=== PATIENT | female | born 1995 | race Caucasian/White ===

== ENCOUNTER 2019-12-18 11:36 | Outpatient (CLI) | payer BC ==
[2019-12-18 12:00] LABS: Appearance,Urine Clear (Clear); Bilirubin,Urine Negative (Negative); Blood,Urine Negative (Negative); Color,Urine Yellow; Glucose,Urine (UA) Negative (Negative); Ketones,Urine Negative (Negative); Leukocyte Esterase,Urine Negative (Negative); Nitrite,Urine Negative (Negative); PH, Urine 7.5 (5.0-8.0); Protein,Urine Negative (Negative); Specific Gravity,Urine 1.008 (1.001-1.035); Urobilinogen,Urine <2.0 mg/dL (<2.0)
[2019-12-18 12:27] LABS: Basophils % (A) 0 %; Eosinophils # (A) 0.1 k/uL (0-0.7); Eosinophils % (A) 1 %; HCT 37.4 % (34.0-46.0); HGB 12.3 gm/dL (11.4-16.0); Lymphocytes # (A) 1.3 k/uL (1.0-4.8); Lymphocytes % (A) 14 %; MCH 29.2 pg (25.0-35.0); MCHC 32.9 g/dL (31.0-37.0); MCV 88.7 fL (80.0-100.0); Mean Platelet Volume 8.9; Monocytes # (A) 0.4 k/uL (0-1.0); Monocytes % (A) 4 %; Neutrophils # (A) 7.6 k/uL (1.3-7.7); Neutrophils % (A) 80 %; Platelet Count 192 k/uL (150-450); RBC 4.22 m/uL (3.80-5.40); RDW 12.5 % (11.5-15.5); WBC 9.5 k/uL (3.8-10.6)
[2019-12-18 12:37] LABS: ALT 20 U/L (4-34); AST 23 U/L (14-36); African American GFR (CKD) >90 (>60 ml/min/1.73 sqM); Blood Urea Nitrogen 6 mg/dL (7-17); LDH 408 U/L (313-618); Non-African American GFR(CKD) >90 (>60 ml/min/1.73 sqM); Uric Acid 4.9 mg/dL (3.7-7.4)
[2019-12-18 12:39] LABS: Protein/Creatinine Ratio,Urine 0.155
[2019-12-18 12:51] VITALS: BP 132/81; PULSE 105; RESP 15; TEMP 98.8
--- NOTE | 2019-12-19 06:46 | P.MSEPDOC ---
Presenting Problems - Arrival Data Date of Arrival on Unit: 12/18/19 Time of Arrival on Unit: 11:45 Mode of Transport: Ambulatory - Complaint OB-Reason for Admission/Chief Complaint: PIH Medical History - Information : 1 Para: 0 Term: 0 : 0 Abortions: Spontaneous or Elective: 0 Number of Living Children: 0 - Gestational Age Gestational Age by ROBBIN (wks/days): 33 Weeks and 1 Days Review of Systems - Review of Systems Constitutional: No problems Breast: No problems ENT: No problems Cardiovascular: No problems Respiratory: No problems Gastrointestinal: No problems Genitourinary: No problems Musculoskeletal: No problems Neurological: No problems Skin: No problems Vital Signs - Temperature Temperature: 98.8 F Temperature Source: Temporal Artery Scan - Pulse Pulse Oximetery Pulse Rate: 105 Pulse Assessment Method: Automatic Cuff - Respirations Respiratory Rate: 15 Oxygen Delivery Method: Room Air O2 Sat by Pulse Oximetry: 98 - Blood Pressure Right Arm Blood Pressure: 132/81 Blood Pressure Mean: 98 Blood Pressure Source: Automatic Cuff Medical Screen Scoring (Pre) - Cervical Exam Dilation: Exam Deferred Effacement: Exam Deferred Membranes: Intact - Uterine Contractions Frequency: N/A Duration: N/A Intensity: N/A - Maternal Vital Signs Maternal Temperature: N/A Maternal Blood Pressure: N/A Signs of Preeclampsia: N/A Maternal Respirations: N/A - Maternal Trauma Maternal Trauma: N/A - Assessment - Baby A Baseline FHR: 140 Heart Rate - NICHD Category: Category I (Normal) = 0 NST: Reactive Position: N/A Station: N/A - Total Score - Baby A Total Score - Baby A: 0 - Total Score - Baby B Total Score - Baby B: 0 - Total Score - Baby C Total Score - Baby C: 0 - Level of Risk - Baby A Level of Risk - Baby A: Low (0-5) - Level of Risk - Baby B Level of Risk - Baby B: Low (0-5) - Level of Risk - Baby C Level of Risk - Baby C: Low (0-5) Physician Notification (Pre) - Physician Notified Physician Notified Date: 12/18/19 Physician Notified Time: 12:30 New Order Received: Yes Disposition - Disposition OB Disposition: Discharge to home Discharge Date: 12/18/19 Discharge Time: 12:51 I agree with the RN Medical Screening Exam: Yes Risk & Benefit of care provided described in d/c instruction: Yes Diagnosis: GESTATIONAL HTN W/O SIGNIFICANT PROTEINURIA, THIRD TRIMESTER
== END 2019-12-18 12:58 | disposition home or self-care (01) ==
LOC: FBPOP 11:36
PROVIDERS: ATTEND Obstetrics & Gynecology
DX: O13.3 Gestational [pregnancy-induced] hypertension without significant proteinuria, third trimester (principal); Z3A.33 33 weeks gestation of pregnancy
CPT/HCPCS: 59025; 81003; 82565; 82570; 83615; 84156; 84450; 84460; 84520; 84550; 85025

== ENCOUNTER 2020-01-29 06:00 | Inpatient (IN) | payer BC ==
--- NOTE | 2020-01-28 08:13 | P.HPOB ---
History of Present Illness H&P Date: 01/28/20 Chief Complaint: Requested induction of labor. This patient is a pleasant 24 yr female EDC 02/04/2020 estimated gestational age 39 and 1/7 weeks who presents for requested induction of labor. was complicated by an isolated elevated blood pressure (negative evaluation). This was thought to be secondary to stress (marital issues). Blood pressure has been normal since and she has been having normal NSTs. Now presents for induction. Review of Systems Genitourinary: Reports Menstruation: Reports amenorrhea Past Medical History Past Medical History: No Reported History History of Any Multi-Drug Resistant Organisms: None Reported Past Surgical History: No Surgical Hx Reported Past Anesthesia/Blood Transfusion Reactions: No Reported Reaction Past Psychological History: No Psychological Hx Reported Smoking Status: Never smoker Past Alcohol Use History: None Reported Past Drug Use History: None Reported Medications and Allergies Home Medications Medication Instructions Recorded Confirmed Type Pnv No.95/Ferrous Fum/Folic AC 2 each PO DAILY 12/18/19 12/18/19 History [ Multivitamin Tablet] Allergies Allergy/AdvReac Type Severity Reaction Status Date / Time No Known Allergies Allergy Verified 12/18/19 11:40 Exam - OBG Physical Exam Abdomen: bowel sounds normal, no diffuse tenderness, no bruit present, no guarding noted, no hepatomegaly, no splenomegaly, no mass Vulva: both: normal Vagina: normal moisture, no discharge Cervix: no lesion (Cervix 2-3 / 50% in office), no discharge Uterus: enlarged (Fundal height is 39 cm) Results Labs: A positive, Rubella Immune, RPR-HepB neg, Toxo negative, GBS positive, Ultrasounds have been normal. Assessment and Plan Assessment: This is a pleasant 24yr old female 39 and 1/7 weeks gestation who presents for requested induction of labor. Positive GBS culture. Plan is antibiotic prophylaxis, and Pitocin induction of labor. Anticipate . (1) 39 weeks gestation of Status: Acute Code(s): Z3A.39 - 39 WEEKS GESTATION OF SNOMED Code(s): 68630879 (2) Group B streptococcal carriage complicating Status: Acute Code(s): O99.820 - STREPTOCOCCUS B CARRIER STATE COMPLICATING SNOMED Code(s): 445044524128300 (3) Elective induction of labor planned Status: Acute Code(s): QNY4290 - SNOMED Code(s): 652160971
[2020-01-29] MEDS ORDERED: AMPICILLIN 1,000 MG in SODIUM CHLORIDE 0.9% 50 ML IVPB SCH (06:02)
[2020-01-29] MEDS ORDERED: LIDOCAINE 0.5% (PF) 5 MG/ML (50 ML SDV) SQ PRN (06:02)
[2020-01-29] MEDS ORDERED: AMPICILLIN 2,000 MG in SODIUM CHLORIDE 0.9% 100 ML IVPB STA (06:02)
[2020-01-29] MEDS ORDERED: METHYLERGONOVINE 0.2 MG/ML 1 ML AMP IM PRN (06:02)
[2020-01-29] MEDS ORDERED: CARBOPROST TROMETHAMINE 250 MCG/ML 1 ML AMP IM PRN (06:02)
[2020-01-29] MEDS ORDERED: TERBUTALINE 1 MG/ML VIAL SQ PRN (06:02)
[2020-01-29] MEDS ORDERED: OXYTOCIN 10 UNIT/ML 1 ML VIAL IM PRN (06:02)
[2020-01-29 07:25] LABS: Basophils % (A) 0 %; Eosinophils # (A) 0.1 k/uL (0-0.7); Eosinophils % (A) 1 %; HCT 36.6 % (34.0-46.0); HGB 12.5 gm/dL (11.4-16.0); Lymphocytes # (A) 1.6 k/uL (1.0-4.8); Lymphocytes % (A) 19 %; MCH 29.5 pg (25.0-35.0); MCHC 34.1 g/dL (31.0-37.0); MCV 86.5 fL (80.0-100.0); Mean Platelet Volume 9.2; Monocytes # (A) 0.5 k/uL (0-1.0); Monocytes % (A) 6 %; Neutrophils # (A) 6.2 k/uL (1.3-7.7); Neutrophils % (A) 73 %; Platelet Count 213 k/uL (150-450); RBC 4.23 m/uL (3.80-5.40); RDW 13.1 % (11.5-15.5); WBC 8.4 k/uL (3.8-10.6)
[2020-01-29] MEDS ORDERED: ROPIVACAINE 100 MG, fentaNYL (PF) 200 MCG in SODIUM CHLORIDE 0.9% 76 ML EPIDURAL ONE (16:07)
[2020-01-29] MEDS ORDERED: CITRIC ACID-SODIUM CITRATE 15 ML CUP PO ONE (18:22)
[2020-01-29] MEDS ORDERED: MORPHINE SULFATE (PF) 0.3 MG/0.3 ML SYR ONE (18:40)
[2020-01-29] MEDS ORDERED: ceFAZolin 1,000 MG VIAL ONE (18:40)
[2020-01-29] MEDS ORDERED: NALBUPHINE 10 MG/ML (1 ML AMP) ONE (18:40)
[2020-01-29] MEDS ORDERED: KETOROLAC 30 MG/ML 1 ML VIAL ONE (18:40)
[2020-01-29] MEDS ORDERED: OXYTOCIN 10 UNIT/ML 1 ML VIAL ONE (18:40)
[2020-01-29] MEDS ORDERED: SODIUM CHLORIDE 0.9% 250 ML BAG ONE (18:40)
[2020-01-29] MEDS ORDERED: ONDANSETRON 4 MG/2 ML VIAL ONE (18:40)
[2020-01-29] MEDS ORDERED: PHENYLEPHRINE-0.9% NACL SYG 1 MG/10 ML SYRINGE ONE (18:40)
[2020-01-29] MEDS ORDERED: MORPHINE SULFATE 2 MG/ML SYRINGE IVP PRN (19:02)
[2020-01-29] MEDS ORDERED: ONDANSETRON 4 MG/2 ML VIAL IVP PRN ×2 (19:02→21:22)
[2020-01-29] MEDS ORDERED: diphenhydrAMINE 50 MG/ML 1 ML VIAL IVP PRN ×3 (19:02→21:21)
[2020-01-29] MEDS ORDERED: NALOXONE 0.4 MG/ML 1 ML VIAL IV PRN (19:02)
[2020-01-29] MEDS ORDERED: ACETAMINOPHEN TAB 325 MG TAB PO PRN (19:29)
[2020-01-29] MEDS ORDERED: diphenhydrAMINE 25 MG CAP PO PRN (19:29)
[2020-01-29] MEDS ORDERED: METOCLOPRAMIDE 5 MG/ML 2 ML VIAL IVP PRN ×2 (19:29→21:22)
[2020-01-29] MEDS ORDERED: SIMETHICONE 80 MG CHEWABLE PO PRN ×2 (19:29→21:23)
[2020-01-29] MEDS ORDERED: KETOROLAC 30 MG/ML 1 ML VIAL IVP PRN (19:29)
[2020-01-29] MEDS ORDERED: ZOLPIDEM 5 MG TAB PO PRN (19:29)
[2020-01-29] MEDS ORDERED: OXYTOCIN 20 UNITS/1000 ML NS 1,000 ML IV SCH (19:30)
--- NOTE | 2020-01-29 19:37 | P.OP ---
Date of Procedure: 01/29/20 Preoperative Diagnosis: #1: 39 and one sevenths week intrauterine . #2: Failure to progress in labor. Postoperative Diagnosis: Same Procedure(s) Performed: Primary low transverse section Anesthesia: epidural Surgeon: Nicolas Jacobson Carver Hand #1: Renetta Awan Estimated Blood Loss (ml): 800 Pathology: none sent Condition: stable Disposition: floor Indications for Procedure: Please see dictated H&P for intimate details of this patient's admission. Brief summary is a pleasant 24-year-old 1 para 0 female 39 and one sevenths weeks gestation admitted to labor and delivery for induction of labor. On admission patient is 3 cm dilated has artificial rupture membranes for clear fluid. Labor is induced with Pitocin per protocol. Despite adequate labor patient only progresses to 6-7 cm dilated with failure dissent of the head. This time I talked the patient and her we elected proceed with section for delivery. Patient does understand the surgery and its risks and risks of infection, bleeding, possible injury bowel, bladder, vessels, and/or other organs. All the patient's questions are answered and a written consent is obtained. Operative Findings: This is a vigorous viable male Apgars are 9 and 9 delivery time is 1853 hrs. Description of Procedure: This patient has a Schmitt catheter placed to straight drain. She is subsequently taken to the operating room where her epidural is dosed up for sufficient level of surgery. With an adequate level of anesthesia she has abdominal prep and drape. Scalpels and taken Pfannenstiel skin incision is then made. A second scalpel is taken down the fascia the fascia scored with a knife. Fascial incision extended bilaterally using the Gonzalez scissors. Fascia is then dissected off the rectus muscles sharply. Rectus muscles are the peritoneum identified and entered sharply. Peritoneal incision extended superior and inferior without difficulty. Bladder blade is then placed. Bladder peritoneum was taken off the lower uterine segment with the Metzenbaum scissors. Scalpels and taken low transverse uterine incision is made. Using a hemostat I into the uterine cavity bluntly and there is loss of clear fluid. This incision is extended bluntly as well. Placenta is then guided gently through the incision it is not engaged in the pelvis. Mouth and nares are bulb suctioned. There is no evidence of nuchal cord. With gentle fundal pressure we then have deliver the rest of this infant's body. This is a vigorous viable male infant Apgars are 9 and 9 delivery time is 1853 hrs. After delivery of the infant the placenta is manually extracted intact. Uterine incision demarcated with Wang clamps and then closed using 0 Vicryl running locked fashion 2 layers. Excellent hemostasis is noted. Bladder peritoneum was then reapproximated using a 3-0 Vicryl. Excess fluid is removed from the abdomen and pelvis. Parietal peritoneum was then identified and closed using 0 Vicryl running fashion. Rectus muscles were to proximal 0 Vicryl interrupted fashion. Fascial incision then closed using 0 PDS. Fascia is intact and hemostatic. Subcutaneous tissues and closed using a 3-0 Vicryl. Skin is and closed using marion. All counts are correct 3. There are no complications. Infant and mother are stable delivery room.
[2020-01-30] MEDS: KETOROLAC 30 MG/ML 1 ML VIAL IVP PRN ×3 (03:50→16:23)
[2020-01-30] MEDS: SENNOSIDES-DOCUSATE SODIUM 1 EACH TAB PO SCH ×3 (05:45→21:58)
--- NOTE | 2020-01-30 06:04 | P.PNOBGPC ---
Subjective - Subjective Patient reports: Reports appetite normal, Reports voiding normally, Reports pain well controlled, Reports ambulating normally : doing well Objective - Vital Signs Latest vital signs: Vital Signs Temp Pulse Resp BP Pulse Ox 01/30/20 04:00 98.5 F 79 16 130/82 01/30/20 02:00 16 01/29/20 23:55 98.0 F 88 16 124/65 01/29/20 23:54 16 01/29/20 22:02 16 01/29/20 21:24 98.1 F 96 16 130/77 01/29/20 20:54 98.0 F 60 16 104/68 01/29/20 20:23 97.7 F 71 16 116/66 01/29/20 20:09 97.7 F 77 16 112/61 01/29/20 20:02 16 01/29/20 19:54 98.2 F 80 16 101/54 80 L 01/29/20 19:39 83 16 110/53 97 01/29/20 19:24 98.0 F 76 16 103/55 100 01/29/20 19:02 16 100 01/29/20 06:29 109 H 16 129/77 100 Intake and Output 01/29/20 01/29/20 01/30/20 14:59 22:59 06:59 Output Total 300 Balance -300 Output: Urine 300 Other: Voiding Method Indwelling Catheter # Voids 2 - Exam Lungs: bilateral: normal Chest: Normal S1, Normal S2 Extremities: Present: normal Abdomen: Present: normal appearance, soft. Absent: distention, tenderness Incision: Present: normal, dry, intact Uterus: Present: normal, firm Assessment and Plan Assessment: Post operative day #1. Patient is resting without new complaints. Vital signs are stable and she is afebrile. Uterus is firm nontender she's having normal lochia. Incision is intact and dry. CBC is pending at the time of this dictation. My impression this is a normal postoperative course. Plan is to encourage ambulation and also urination (prep catheter which is discontinued). Check CBC results. Advanced to regular diet. (1) 39 weeks gestation of Current Visit: No Status: Acute Code(s): Z3A.39 - 39 WEEKS GESTATION OF SNOMED Code(s): 07822280 (2) Group B streptococcal carriage complicating Current Visit: No Status: Acute Code(s): O99.820 - STREPTOCOCCUS B CARRIER STATE COMPLICATING SNOMED Code(s): 599158992127925 (3) Elective induction of labor planned Current Visit: No Status: Acute Code(s): BOK2975 - SNOMED Code(s): 996328239
[2020-01-30 06:50] LABS: Basophils % (A) 0 %; Eosinophils # (A) 0.1 k/uL (0-0.7); Eosinophils % (A) 0 %; HCT 33.8 % (34.0-46.0); HGB 11.3 gm/dL (11.4-16.0); Lymphocytes # (A) 1.3 k/uL (1.0-4.8); Lymphocytes % (A) 13 %; MCH 29.2 pg (25.0-35.0); MCHC 33.6 g/dL (31.0-37.0); MCV 87.2 fL (80.0-100.0); Mean Platelet Volume 9.1; Monocytes # (A) 0.5 k/uL (0-1.0); Monocytes % (A) 5 %; Neutrophils # (A) 8.5 k/uL (1.3-7.7); Neutrophils % (A) 81 %; Platelet Count 189 k/uL (150-450); RBC 3.87 m/uL (3.80-5.40); RDW 13.4 % (11.5-15.5); WBC 10.5 k/uL (3.8-10.6)
--- NOTE | 2020-01-30 14:09 | P.PN ---
Progress Note - Text Progress Note Date: 01/30/20 Patient was seen at bedside. Patient is postop day 1 from with epi dural Duramorph. VAS score is 6/10. Patient denies side effects today, yesterday she had mild side effects in the form of nausea and itching. Lower extremity sensation and motor function is intact. Patient has ambulated
[2020-01-30] MEDS: OXYTOCIN 30 UNITS/500 ML NS 30 UNIT in SALINE 1 500ML.BAG IV SCH ×2 (21:56→21:57)
[2020-01-30] MEDS: PRENATAL VIT-IRON-FOLIC ACID 1 EACH CAP PO SCH (21:57)
[2020-01-30] MEDS: LACTATED RINGERS 1,000 ML IV SCH ×2 (21:57→21:59)
[2020-01-30] MEDS: IBUPROFEN 600 MG TAB PO PRN (22:53)
[2020-01-31] MEDS: HYDROcodone/APAP 5-325MG 1 EACH TAB PO PRN ×3 (02:16→14:45)
[2020-01-31] MEDS: IBUPROFEN 600 MG TAB PO PRN ×3 (05:21→17:58)
[2020-01-31] MEDS: LACTATED RINGERS 1,000 ML IV SCH (05:39)
--- NOTE | 2020-01-31 06:11 | P.PNOBGPC ---
Subjective - Subjective Patient reports: Reports appetite normal, Reports voiding normally, Reports pain well controlled, Reports ambulating normally : doing well Objective - Vital Signs Latest vital signs: Vital Signs Temp Pulse Resp BP Pulse Ox 01/31/20 00:00 98 F 85 15 117/81 98 01/30/20 16:00 97.8 F 86 16 120/71 01/30/20 12:00 97.9 F 69 16 124/68 01/30/20 08:00 97.6 F 71 16 113/67 99 Intake and Output 01/30/20 01/30/20 01/31/20 14:59 22:59 06:59 Output Total 500 1250 Balance -500 -1250 Output: Urine 500 1250 Other: # Voids 1 1 - Exam Lungs: bilateral: normal Chest: Normal S1, Normal S2 Extremities: Present: normal Abdomen: Present: normal appearance, soft. Absent: distention, tenderness Incision: Present: normal, dry, intact Uterus: Present: normal, firm - Labs Labs: Abnormal Lab Results - Last 24 Hours (Table) 01/30/20 Range/Units 05:40 Hgb 11.3 L (11.4-16.0) gm/dL Hct 33.8 L (34.0-46.0) % Neutrophils # 8.5 H (1.3-7.7) k/uL Assessment and Plan Assessment: Postoperative day #2. Patient is resting without complaints and wishes to go home. Vital signs are stable she's afebrile. Her incision is intact and dry. Plan today is to continue routine postoperative care and discharge home later (1) 39 weeks gestation of Current Visit: No Status: Acute Code(s): Z3A.39 - 39 WEEKS GESTATION OF SNOMED Code(s): 50848572 (2) Group B streptococcal carriage complicating Current Visit: No Status: Acute Code(s): O99.820 - STREPTOCOCCUS B CARRIER STATE COMPLICATING SNOMED Code(s): 444430573038178 (3) Elective induction of labor planned Current Visit: No Status: Acute Code(s): ONH0453 - SNOMED Code(s): 289569204
--- NOTE | 2020-01-31 06:22 | P.DS ---
Providers Date of admission: 01/29/20 06:00 Expected date of discharge: 01/31/20 Attending physician: Nicolas Jacobson Primary care physician: Stated None - Discharge Diagnosis(es) (1) 39 weeks gestation of Current Visit: No Status: Acute (2) Group B streptococcal carriage complicating Current Visit: No Status: Acute (3) Elective induction of labor planned Current Visit: No Status: Acute Hospital Course: Please see dictated H&P for intimate details of this patient's admission. Brief summary this pleasant 24-year-old 1 para 0 female 39 and one sevenths weeks gestation admitted to labor and delivery for requested induction of labor. Patient was on have a primary low transverse section for failure to progress. Dictated operative note. Postoperative patient does well felt stable for discharge home postoperative day #2 Procedures: Induction of labor and primary low transverse section Patient Condition at Discharge: Good Plan - Discharge Summary New Discharge Prescriptions: New Ibuprofen [Motrin] 600 mg PO Q6HR PRN #40 tab PRN Reason: Mild Pain Or Fever >= 100.5 HYDROcodone/APAP 5-325MG [[place] 5-325] 1 each PO Q4HR PRN #18 tab PRN Reason: Moderate Pain No Action Pnv No.95/Ferrous Fum/Folic AC [ Multivitamin Tablet] 2 each PO DAILY Discharge Medication List Pnv No.95/Ferrous Fum/Folic AC [ Multivitamin Tablet] 2 each PO DAILY 12/18/19 [History] HYDROcodone/APAP 5-325MG [[place] 5-325] 1 each PO Q4HR PRN #18 tab 01/31/20 [Rx] Ibuprofen [Motrin] 600 mg PO Q6HR PRN #40 tab 01/31/20 [Rx] Follow up Appointment(s)/Referral(s): Nicolas Jacobson MD [STAFF PHYSICIAN] - 03/16/20 2:45 pm (Please see me in 1 week for an incision check) Patient Instructions/Handouts: (DC) Activity/Diet/Wound Care/Special Instructions: No strenuous activity or heavy lifting. No intercourse or anything per vagina for 7 days. Please call if any fever, chills, excessive vaginal bleeding, and/or abdominal pain Discharge Disposition: HOME SELF-CARE
[2020-01-31] MEDS: SENNOSIDES-DOCUSATE SODIUM 1 EACH TAB PO SCH (08:31)
[2020-01-31 11:31] VITALS: RESP 16
[2020-01-31 15:55] VITALS: BP 120/76; PULSE 88; TEMP 98.2
== END 2020-01-31 18:27 | disposition home or self-care (01) | DRG 788 ==
LOC: 4FBP 06:00
PROVIDERS: ADMIT Obstetrics & Gynecology; ATTEND Obstetrics & Gynecology
PROC: 3E033VJ Introduction of Other Hormone into Peripheral Vein, Percutaneous Approach (ICD-10-PCS; principal; 2020-01-29 06:15)
PROC: 10D00Z1 Extraction of Products of Conception, Low, Open Approach (ICD-10-PCS; principal; 2020-01-29 06:15)
DX: O99.824 Streptococcus B carrier state complicating childbirth (principal); O62.2 Other uterine inertia; Z63.0 Problems in relationship with spouse or partner; Z37.0 Single live birth; Z3A.39 39 weeks gestation of pregnancy
CPT/HCPCS: 85025; 86850; 86900; 86901